=== PATIENT | male | born 1990 | race Native Hawaiian/Other Pacific Islander ===

== ENCOUNTER 2022-03-19 10:53 | Emergency (ER) | payer OTHER ==
[~2022-03-19] VITALS: Ht 180.3 cm; Wt 86.2 kg
[2022-03-19] MEDS ORDERED: CLONIDINE HCL0.1 MG PO (11:09)
[2022-03-19] MEDS ORDERED: HYDROXYZINE HCL25 MG PO (11:09)
== END 2022-03-19 12:35 | disposition home or self-care (01) ==
LOC: ED 10:53
PROC: 0XQJXZZ Repair Right Hand, External Approach (ICD-10-PCS; principal; 2022-03-19)
DX: S61.411A Laceration without foreign body of right hand, initial encounter (principal); W26.8XXA Contact with other sharp object(s), not elsewhere classified, initial encounter; Y92.89 Other specified places as the place of occurrence of the external cause
CPT/HCPCS: 12001; 90471; 90715; 99282-25